=== PATIENT | male | born 1955 ===

== ENCOUNTER 2017-09-16 15:40 | Emergency (ER) | payer MEDICAID ==
--- NOTE | 2017-09-16 16:04 | ED PDOC ---
Arrival/HPI - General Time Seen by Provider: 09/16/17 16:00 Historian: Patient - History of Present Illness Narrative History of Present Illness (Text): 09/16/17 16:02 A 61 year old male, whose past medical history includes hypertension and hepatitis, presents to the emergency department complaining of left lower lung pain for 1 month. Patient reports also experiencing pain when taking deep breaths, more so when laying down, intermittent abdominal pain, and minimal cough. Denies of any fever, shortness of breath, or any other complaints at this time. No PMD Time/Duration: Other (1 month) Symptom Onset: Sudden Symptom Course: Unchanged Past Medical History - Provider Review Nursing Documentation Reviewed: Yes - Infectious Disease Hx of Infectious Diseases: None - Cardiac Hx Cardiac Disorders: Yes Hx Hypertension: Yes - Pulmonary Hx Respiratory Disorders: No - Neurological Hx Neurological Disorder: No - HEENT Hx HEENT Disorder: No - Renal Hx Renal Disorder: No - Endocrine/Metabolic Hx Endocrine Disorders: No - Hematological/Oncological Hx Blood Transfusions: No - Integumentary Hx Dermatological Disorder: No - Musculoskeletal/Rheumatological Hx Musculoskeletal Disorders: Yes Hx Gout: Yes - Gastrointestinal Hx Gastrointestinal Disorders: No - Genitourinary/Gynecological Hx Genitourinary Disorders: No - Psychiatric Hx Psychophysiologic Disorder: No Hx Substance Use: No - Anesthesia Hx Anesthesia Reactions: No Hx Malignant Hyperthermia: No Family/Social History - Physician Review Nursing Documentation Reviewed: Yes Family/Social History: No Known Family HX Smoking Status: Never Smoked Hx Alcohol Use: No Hx Substance Use: No Allergies/Home Meds Allergies/Adverse Reactions: Allergies No Known Allergies Allergy (Verified 11/24/16 21:19) Home Medications: Home Meds Medication Instructions Recorded Confirmed Allopurinol [Zyloprim] 100 mg PO DAILY 11/24/16 09/16/17 Propranolol HCl [Inderal LA] 60 mg PO DAILY 11/29/16 09/16/17 Review of Systems - Physician Review All systems were reviewed & negative as marked: Yes - Review of Systems Constitutional: absent: Fevers ENT: absent: Sore Throat Respiratory: Cough (minimal cough) Cardiovascular: Chest Pain (left lower lung pain) Gastrointestinal: Abdominal Pain (intermittent) Physical Exam Vital Signs Temp Pulse Resp BP Pulse Ox 09/16/17 16:30 97.7 F 88 16 141/96 H 98 - Systems Exam Head: Present: Atraumatic, Normocephalic Pupils: Present: PERRL Extroacular Muscles: Present: EOMI Conjunctiva: Present: Normal Mouth: Present: Moist Mucous Membranes Neck: Present: Normal Range of Motion Respiratory/Chest: Present: Clear to Auscultation, Good Air Exchange. No: Respiratory Distress, Accessory Muscle Use Cardiovascular: Present: Regular Rate and Rhythm, Normal S1, S2. No: Murmurs Abdomen: Present: Normal Bowel Sounds. No: Tenderness, Distention, Peritoneal Signs Back: Present: Normal Inspection Upper Extremity: Present: Normal Inspection. No: Cyanosis, Edema Lower Extremity: Present: Normal Inspection. No: Edema Neurological: Present: GCS=15, CN II-XII Intact, Speech Normal Skin: Present: Warm, Dry, Normal Color. No: Rashes Psychiatric: Present: Alert, Oriented x 3, Normal Insight, Normal Concentration Medical Decision Making ED Course and Treatment: 09/16/17 16:06 Impression: 61 year old male with left lower lung pain, minimal cough, and intermittent abdominal pain. No acute findings on physical exam. Plan: -- Reassess and disposition Prior Visits: Notes and results from previous visits were reviewed. Patient was last seen in the emergency department on 11/24/2016 for RUQ pain with associated nausea and vomiting. Patient was admitted. Progress Notes: - Lab Interpretations Lab Results: 09/16/17 17:00 09/16/17 17:00 Lab Results 09/16/17 17:00: D-Dimer, Quantitative < 200 09/16/17 17:00: Sodium 142, Potassium 4.4, Chloride 105, Carbon Dioxide 28, Anion Gap 14, BUN 12, Creatinine 1.0, Est GFR ( Amer) > 60, Est GFR (Non- Af Amer) > 60, Random Glucose 93, Calcium 9.7, Total Bilirubin 0.7, AST 40, ALT 44, Alkaline Phosphatase 103, Troponin I < 0.01, NT-Pro-B Natriuret Pep 24.0, Total Protein 7.6, Albumin 4.3, Globulin 3.3, Albumin/Globulin Ratio 1.3, Lipase 44 09/16/17 17:00: WBC 8.2 D, RBC 5.19, Hgb 16.0, Hct 46.8, MCV 90.2, MCH 30.8, MCHC 34.2, RDW 13.4, Plt Count 153, MPV 10.7, Gran % 62.3, Lymph % (Auto) 30.6, Cook % (Auto) 5.2, Eos % (Auto) 1.5, Baso % (Auto) 0.4, Gran # 5.13, Lymph # 2.5 , Cook # 0.4, Eos # 0.1, Baso # 0.03 - RAD Interpretation Radiology Orders: 09/16/17 16:40 ANGIO CHEST PE PROTOCOL [CT] Stat CHEST PORTABLE [RAD] Stat - Scribe Statement The provider has reviewed the documentation as recorded by the Alessio Quach Provider Scribe Attestation: All medical record entries made by the Luisibe were at my direction and personally dictated by me. I have reviewed the chart and agree that the record accurately reflects my personal performance of the history, physical exam, medical decision making, and the department course for this patient. I have also personally directed, reviewed, and agree with the discharge instructions and disposition. Disposition/Present on Arrival - Present on Arrival History of DVT/PE: No History of Uncontrolled Diabetes: No Urinary Catheter: No History Surgical Site Infection Following: None - Disposition Diagnosis: Diaphragmatic pleurisy Disposition: HOME/ ROUTINE Disposition Time: 18:30 Patient Plan: Discharge Patient Problems: Current Active Problems Problem Status Onset Diaphragmatic pleurisy Acute Condition: GOOD Discharge Instructions (ExitCare): Pleural Empyema (ED), Pleurisy (ED) Prescriptions: predniSONE [predniSONE Tab] 40 mg PO DAILY 5 Days #10 tab Referrals: [id number] [Other] - Follow up with primary Forms: [employer] (Pashto)
[2017-09-16 16:33] VITALS: BMI 38.9
[2017-09-16 16:41] VITALS: RESP 16; TEMP 97.7
[2017-09-16] MEDS ORDERED: Iohexol 350 MG/100 ML VIAL ONE (16:59)
[2017-09-16 17:19] LABS: BASO # 0.03 K/mm3 (0.0-2.0); BASO % 0.4 % (0.0-3.0); EOS # 0.1 (0.0-0.7); EOS % 1.5 % (1.5-5.0); GRAN # 5.13 (1.4-6.5); GRAN % 62.3 % (50.0-68.0); HEMATOCRIT 46.8 % (42.0-52.0); LYMPH # 2.5 (1.2-3.4); LYMPH % 30.6 % (22.0-35.0); MEAN CELL VOLUME 90.2 fl (80.0-105.0); MEAN CORPUSCULAR HEMOGLOBIN 30.8 pg (25.0-35.0); MEAN CORPUSCULAR HGB CONC 34.2 g/dl (31.0-37.0); MEAN PLATELET VOLUME 10.7 fl (7.0-11.0); MONO # 0.4 (0.1-0.6); MONO % 5.2 % (1.0-6.0); RED CELL DISTRIBUTION WIDTH 13.4 % (11.5-14.5); WHITE BLOOD COUNT 8.2 10^3/ul (4.5-11.0)
[2017-09-16 17:32] LABS: ALB/GLOB RATIO 1.3 (1.1-1.8); ALKALINE PHOSPHATASE 103 U/L (38-126); ALT/SGPT 44 U/L (7-56); AST/SGOT 40 U/L (17-59); BILIRUBIN,TOTAL 0.7 mg/dL (0.2-1.3); BLOOD UREA NITROGEN 12 mg/dL (7-21); CALCIUM 9.7 mg/dL (8.4-10.5); CARBON DIOXIDE 28 mmol/L (21-33); CHLORIDE 105 mmol/L (98-107); GFR AFRICAN-AMERICAN > 60; GLUCOSE,RANDOM 93 mg/dL (70-110); LIPASE 44 U/L (23-300); POTASSIUM 4.4 mmol/L (3.6-5.0); SODIUM 142 mmol/L (132-148); TOTAL PROTEIN 7.6 g/dL (5.8-8.3)
[2017-09-16 17:42] LABS: TROPONIN I < 0.01 ng/mL
--- NOTE | 2017-09-16 18:00 | CARD ---
APPROVED REPORT EKG Measurement Heart [id number] <Conclusion> Normal sinus rhythm Normal ECG
--- NOTE | 2017-09-16 18:18 | CT ---
CTA chest PE protocol Indication: Rule out PE Technique: Contiguous axial images were obtained through the chest with intravenous contrast enhancement. Sagittal and coronal reconstructions were generated and reviewed. This CT exam was performed using 1 or more of the falling dose reduction techniques: Automated exposure control, adjustment of the MAA and/or kV according to patient size, and/or use of iterative reconstruction technique. IV Contrast: 100 cc Omnipaque 350 Radiation dose (DLP): 788.18 MGy-cm. Comparison: Chest x-ray performed 11/24/16 Findings: Visualized portions of the inferior thyroid gland appear unremarkable. The mediastinal and hilar vascular structures appear within normal limits. The heart appears within normal limits of size. No large central or segmental pulmonary embolus evident. No focal consolidation. No pleural effusion. No pneumothorax. No suspicious pulmonary nodules measuring greater than 5 mm. Limited visualized portions of the upper abdomen demonstrates cholecystectomy clips. 19 mm hepatic hypodense lesion, 18 HU, indeterminate. Fatty atrophy of the pancreas. Punctate left renal calculi. Degenerative changes of the spine Impression: No large central or segmental pulmonary embolus evident. Cholecystectomy clips. 19 mm hepatic hypodense lesion, 18 HU, indeterminate. Suggest dedicated cross-sectional imaging for further evaluation if indicated. Fatty atrophy of the pancreas. Punctate left renal calculi. No hydronephrosis.
[2017-09-16 19:12] VITALS: BP 137/94; PULSE 84; O2SAT 97
--- NOTE | 2017-09-17 08:01 | RAD ---
HISTORY: cp COMPARISON: 11/24/2016 FINDINGS: LUNGS: No active pulmonary disease. PLEURA: No significant pleural effusion identified, no pneumothorax apparent. CARDIOVASCULAR: Normal. OSSEOUS STRUCTURES: No significant abnormalities. VISUALIZED UPPER ABDOMEN: Normal. OTHER FINDINGS: None. IMPRESSION: No active disease.
== END 2017-09-16 18:50 | disposition home or self-care (01) ==
LOC: ED 15:40
DX: R09.1 Pleurisy (principal); I10 Essential (primary) hypertension
CPT/HCPCS: 71010; 71275; 80053; 83690; 83880; 84484; 85025; 85378; 93005; 99283; Q9967

== ENCOUNTER 2018-09-30 02:05 | Observation (INO) | payer MEDICAID ==
[2018-09-30 02:33] VITALS: BMI 41.7
--- NOTE | 2018-09-30 03:05 | ED PDOC ---
Arrival/HPI - General Chief Complaint: High Blood Pressure Time Seen by Provider: 09/30/18 02:43 Historian: Patient - History of Present Illness Narrative History of Present Illness (Text): 09/30/18 03:01 62 year old male, whose past medical history includes hypertension and borderline diabetes, presents to the emergency department with generalized malaise for the past couple of days. Patient informs having associated dizzine ss. Patient states his blood pressure has been elevated. Patient informs taking lisinopril, and informs having to take an extra dose yesterday evening. Patient states he is concerned because he feels near syncopal every time he gets up and walks. Patient states he never experienced this before. Patient denies any chest pain, shortness of breath, neck pain, back pain, fever, chills, or any other complaint. Time/Duration: Prior to Arrival, < week Activities at Onset: Light Past Medical History - Provider Review Nursing Documentation Reviewed: Yes - Infectious Disease Hx of Infectious Diseases: None - Cardiac Hx Cardiac Disorders: Yes Hx Hypertension: Yes - Pulmonary Hx Respiratory Disorders: No - Neurological Hx Neurological Disorder: No - HEENT Hx HEENT Disorder: No - Renal Hx Renal Disorder: No - Endocrine/Metabolic Hx Endocrine Disorders: No - Hematological/Oncological Hx Blood Transfusions: No - Integumentary Hx Dermatological Disorder: No - Musculoskeletal/Rheumatological Hx Musculoskeletal Disorders: Yes Hx Gout: Yes - Gastrointestinal Hx Gastrointestinal Disorders: No - Genitourinary/Gynecological Hx Genitourinary Disorders: No - Psychiatric Hx Psychophysiologic Disorder: No Hx Substance Use: No - Surgical History Hx Cholecystectomy: Yes - Anesthesia Hx Anesthesia: Yes Hx Anesthesia Reactions: No Hx Malignant Hyperthermia: No Family/Social History - Physician Review Nursing Documentation Reviewed: Yes Family/Social History: No Known Family HX Smoking Status: Never Smoked Hx Alcohol Use: No Hx Substance Use: No Allergies/Home Meds Allergies/Adverse Reactions: Allergies No Known Allergies Allergy (Verified 09/30/18 02:37) Home Medications: Home Meds Medication Instructions Recorded Confirmed Allopurinol [Zyloprim] 100 mg PO DAILY 11/24/16 09/30/18 Lisinopril [Prinivil] 20 mg PO DAILY 09/30/18 09/30/18 Review of Systems - Physician Review All systems were reviewed & negative as marked: Yes - Review of Systems Constitutional: Fatigue (generalized malaise). absent: Fevers, Night Sweats Respiratory: absent: SOB Cardiovascular: Syncope (near syncope). absent: Chest Pain Musculoskeletal: absent: Back Pain, Neck Pain Neurological: Dizziness Physical Exam Vital Signs Reviewed: Yes Vital Signs Temp Pulse Resp BP Pulse Ox 09/30/18 02:33 98.8 F 91 H 18 146/100 H 97 Temperature: Afebrile Blood Pressure: Hypertensive Pulse: Regular Respiratory Rate: Normal Appearance: Positive for: Well-Appearing, Non-Toxic, Comfortable Pain Distress: None Mental Status: Positive for: Alert and Oriented X 3 - Systems Exam Head: Present: Atraumatic, Normocephalic Pupils: Present: PERRL Extroacular Muscles: Present: EOMI. No: Other (No nystagmus) Conjunctiva: Present: Normal Mouth: Present: Moist Mucous Membranes Neck: Present: Normal Range of Motion Respiratory/Chest: Present: Clear to Auscultation, Good Air Exchange. No: Respiratory Distress, Accessory Muscle Use Cardiovascular: Present: Regular Rate and Rhythm, Normal S1, S2. No: Murmurs Abdomen: No: Tenderness, Distention, Peritoneal Signs Back: Present: Normal Inspection Upper Extremity: Present: Normal Inspection. No: Cyanosis, Edema Lower Extremity: Present: Normal Inspection. No: Edema Neurological: Present: GCS=15, CN II-XII Intact, Speech Normal, Motor Func Grossly Intact, Normal Sensory Function, Normal Cerebellar Funct Skin: Present: Warm, Dry, Normal Color. No: Rashes Psychiatric: Present: Alert, Oriented x 3, Normal Insight, Normal Concentration Medical Decision Making ED Course and Treatment: 09/30/18 03:08 Impression: 62 year old male presents with dizziness and malaise Plan: -- CT Head -- EKG -- Cardiac Iso -- CMP -- CBC -- Chest X-ray -- Reassess and disposition Prior Visits: Notes and results from previous visits were reviewed. Progress Notes: 09/30/18 04:21 CT SCAN OF THE BRAIN WITHOUT IV CONTRAST CLINICAL INDICATION: Dizziness. Near syncope. TECHNIQUE: Axial and reformatted sagittal and coronal images of the brain obtained without IV contrast administration. Normal size of the ventricles and extra-axial spaces for the patient's age. Normal white matter tracts of the supratentorial brain. Normal basal ganglia and thalami. Normal brainstem. Normal cerebellum. There is no demonstrated extra-axial, intraparenchymal, or intraventricular hemorrhage. There are no findings of an acute ischemic infarction. Normal calvarium. There is no demonstrated fracture. Normal soft tissue structures. Normal visualized paranasal sinuses. IMPRESSION: Normal unenhanced CT scan of the brain. 09/30/18 05:05 Case discussed with medical coding technician and house MD Villafuerte who accepts to the hospitalist service. - RAD Interpretation Radiology Orders: 09/30/18 02:54 HEAD W/O CONTRAST [CT] Stat CHEST PORTABLE [RAD] Stat - Scribe Statement The provider has reviewed the documentation as recorded by the Scribe Aditya Torrez Provider Scribe Attestation: All medical record entries made by the Scribe were at my direction and personally dictated by me. I have reviewed the chart and agree that the record accurately reflects my personal performance of the history, physical exam, medical decision making, and the department course for this patient. I have also personally directed, reviewed, and agree with the discharge instructions and disposition. Disposition/Present on Arrival - Present on Arrival Any Indicators Present on Arrival: No History of DVT/PE: No History of Uncontrolled Diabetes: No Urinary Catheter: No History of Decub. Ulcer: No History Surgical Site Infection Following: None - Disposition Have Diagnosis and Disposition been Completed?: Yes Diagnosis: Near syncope, Labile hypertension Disposition: HOSPITALIZED Disposition Time: 05:16 Condition: STABLE Referrals: Genaro Chauhan MD [Primary Care Provider] - Follow up with primary Forms: [employer] (Chinese)
[2018-09-30 03:36] LABS: HEMOGLOBIN 15.5 g/dL (14.0-18.0); MEAN CELL VOLUME 89.9 fl (80.0-105.0); MEAN CORPUSCULAR HEMOGLOBIN 30.6 pg (25.0-35.0); MEAN CORPUSCULAR HGB CONC 34.1 g/dl (31.0-37.0); MEAN PLATELET VOLUME 10.8 fl (7.0-11.0); RBC 5.06 10^6/uL (3.5-6.1); RED CELL DISTRIBUTION WIDTH 13.2 % (11.5-14.5); WHITE BLOOD COUNT 8.8 10^3/uL (4.5-11.0)
[2018-09-30 03:46] LABS: INR 1.03; PARTIAL THROMBOPLASTIN TIME 29.6 Seconds (25.1-36.5); PROTHROMBIN TIME 11.8 SECONDS (9.4-12.5)
[2018-09-30 04:00] LABS: ALB/GLOB RATIO 1.2 (1.1-1.8); ALBUMIN 3.8 g/dL (3.0-4.8); ALT/SGPT 71 U/L (7-56); AST/SGOT 54 U/L (17-59); BLOOD UREA NITROGEN 13 mg/dL (7-21); CALCIUM 9.1 mg/dL (8.4-10.5); GFR NON-AFRICAN AMERICAN > 60
[2018-09-30 04:11] LABS: TROPONIN I < 0.01 ng/mL
--- NOTE | 2018-09-30 06:13 | CP.PCM.HP ---
<Seun Curran - Last Filed: 09/30/18 22:30> History of Present Illness - History of Present Illness History of Present Illness: Seun Curran DO PGY1. H&P for Hospitalist Service C.C: dizziness 62 y/o male with PMH of HTN, gout, HCV presents with one day h/o dizziness and near syncope after taking 40 mg of lisinopril instead of 20mg daily because of elevated BP in 190s/100. Patient admits to medication non compliance and he takes lisinopril only when his BP is highly increased. He also experienced near syncope but denied LOC or trauma. Patient reports to having chronic diarrhea s/p cholecystectomy that hasn't changed. He has gout and takes allopurinol daily and adds cholchicine to it when having joint pain. He also admits to having left renal stones with infrequent renal colics and occasional blood in urine but he denied dysurea, urgency, frequency. Patient denied chest pain, palpitations, LE edema, abdominal pain/distention, vomiting , headache, blurry vision. 12 points ROS reviewed with pertinent positives as above. PMH: kidney stone, HTN, gout, HCV PSH: cholecystectomy Meds: lisinopril 20mg qd, allopurinol ALL: NKDA Soc Hx: denies alcohol, drug use, smoking Fam Hx: no contributory Present on Admission - Present on Admission Any Indicators Present on Admission: No Past Patient History - Infectious Disease Hx of Infectious Diseases: None - Past Social History Smoking Status: Never Smoked - CARDIAC Hx Cardiac Disorders: Yes Hx Hypertension: Yes - PULMONARY Hx Respiratory Disorders: No - NEUROLOGICAL Hx Neurological Disorder: No - HEENT Hx HEENT Problems: No - RENAL Hx Chronic Kidney Disease: No - ENDOCRINE/METABOLIC Hx Endocrine Disorders: No - HEMATOLOGICAL/ONCOLOGICAL Hx Blood Transfusions: No - INTEGUMENTARY Hx Dermatological Problems: No - MUSCULOSKELETAL/RHEUMATOLOGICAL Hx Musculoskeletal Disorders: Yes Hx Gout: Yes - GASTROINTESTINAL Hx Gastrointestinal Disorders: No - GENITOURINARY/GYNECOLOGICAL Hx Genitourinary Disorders: No - PSYCHIATRIC Hx Psychophysiologic Disorder: No Hx Substance Use: No - SURGICAL HISTORY Hx Cholecystectomy: Yes - ANESTHESIA Hx Anesthesia: Yes Hx Anesthesia Reactions: No Hx Malignant Hyperthermia: No Meds Allergies/Adverse Reactions: Allergies Allergy/AdvReac Type Severity Reaction Status Date / Time No Known Allergies Allergy Verified 09/30/18 02:37 Physical Exam - Constitutional Appears: Well, No Acute Distress - Head Exam Head Exam: ATRAUMATIC, NORMAL INSPECTION, NORMOCEPHALIC - Eye Exam Eye Exam: EOMI, Normal appearance, PERRL Pupil Exam: NORMAL ACCOMODATION, PERRL - ENT Exam ENT Exam: Mucous Membranes Moist, Normal Exam - Neck Exam Neck exam: Positive for: Full Rom - Respiratory Exam Respiratory Exam: Clear to Auscultation Bilateral, NORMAL BREATHING PATTERN - Cardiovascular Exam Cardiovascular Exam: REGULAR RHYTHM, RRR, +S1, +S2. absent: Gallop, Rubs - GI/Abdominal Exam GI & Abdominal Exam: Normal Bowel Sounds, Soft. absent: Tenderness - Extremities Exam Extremities exam: Positive for: normal inspection - Back Exam Back exam: NORMAL INSPECTION - Neurological Exam Neurological exam: Alert, CN II-XII Intact, Oriented x3, Reflexes Normal - Psychiatric Exam Psychiatric exam: Normal Affect, Normal Mood - Skin Skin Exam: Dry, Intact, Normal Color, Warm Results - Vital Signs Recent Vital Signs: Last Vital Signs Temp 98.8 F 09/30/18 02:33 Pulse 80 09/30/18 04:51 Resp 18 09/30/18 04:51 BP 125/70 09/30/18 04:51 Pulse Ox 95 09/30/18 04:51 - Labs Result Diagrams: 09/30/18 03:22 09/30/18 03:22 Labs: Laboratory Results - last 24 hr 09/30/18 09/30/18 09/30/18 03:22 03:22 03:22 WBC 8.8 RBC 5.06 Hgb 15.5 Hct 45.5 MCV 89.9 MCH 30.6 MCHC 34.1 RDW 13.2 Plt Count 154 MPV 10.8 PT 11.8 INR 1.03 APTT 29.6 Sodium 137 Potassium 4.2 Chloride 105 Carbon Dioxide 26 Anion Gap 11 BUN 13 Creatinine 0.9 Est GFR ( Amer) > 60 Est GFR (Non-Af Amer) > 60 Random Glucose 148 H Calcium 9.1 Total Bilirubin 0.3 AST 54 ALT 71 H Alkaline Phosphatase 91 Lactate Dehydrogenase 469 Total Creatine Kinase 176 Troponin I < 0.01 Total Protein 7.1 Albumin 3.8 Globulin 3.3 Albumin/Globulin Ratio 1.2 Assessment & Plan - Assessment and Plan (Free Text) Assessment: 62 y/o male with PMH of HTN, gout, HCV presents with one day h/o dizziness and near syncope after taking double dose of lisinopril. Plan: Dizziness/near syncope: -likely due to change in lisinopril dose -CT head: no ICH -orthostatics -admit to tele -cardiac monitoring -EKG: NSR. no ST/T wave changes -CXR: no active disease -neuro ckeck, accuheck -fall precautions -cardiology consult -neuro consult HTN: -medication non compliance -continue home med lisinopril Gout: -no active joint pain -continue ehome med allopurinol Borderline DM: -accuheck -ISS-low -HgbA1C, lipid panel Case reviewed and plan discussed with Dr Naida Curran, DO PGY1 <Krissy Pascal - Last Filed: 10/03/18 01:57> Results - Vital Signs Recent Vital Signs: Last Vital Signs Temp 98.3 F 10/02/18 07:55 Pulse 91 H 10/02/18 07:55 Resp 18 10/02/18 07:55 BP 134/80 10/02/18 10:23 Pulse Ox 96 10/02/18 07:55 - Labs Result Diagrams: 10/02/18 06:00 10/02/18 06:00 Labs: Laboratory Results - last 24 hr 10/02/18 10/02/18 06:00 06:00 WBC 10.5 D RBC 5.14 Hgb 15.4 Hct 46.5 MCV 90.5 MCH 30.0 MCHC 33.1 RDW 13.4 Plt Count 166 MPV 11.2 H Sodium 139 Potassium 4.0 Chloride 105 Carbon Dioxide 27 Anion Gap 11 BUN 15 Creatinine 1.0 Est GFR ( Amer) > 60 Est GFR (Non-Af Amer) > 60 Random Glucose 116 H Calcium 8.9 Total Bilirubin 0.6 AST 51 ALT 61 H Alkaline Phosphatase 97 Total Protein 7.0 Albumin 3.9 Globulin 3.1 Albumin/Globulin Ratio 1.2 Attending/Attestation - Attestation I have personally seen and examined this patient.: Yes I have fully participated in the care of the patient.: Yes I have reviewed all pertinent clinical information: Yes
[2018-09-30] MEDS: Insulin Lispro (humaLOG) LOW Coverage SC SCH ×4 (07:43→21:24)
--- NOTE | 2018-09-30 08:23 | RAD ---
Date of service: 09/30/2018 HISTORY: dizzy COMPARISON: Portable chest 09/16/2017. FINDINGS: LUNGS: No active pulmonary disease. PLEURA: No significant pleural effusion identified, no pneumothorax apparent. CARDIOVASCULAR: No aortic atherosclerotic calcification present. Normal cardiac size. No pulmonary vascular congestion. OSSEOUS STRUCTURES: No significant abnormalities. VISUALIZED UPPER ABDOMEN: Normal. OTHER FINDINGS: None. IMPRESSION: No interval acute cardiopulmonary disease appreciated.
--- NOTE | 2018-09-30 09:02 | CT ---
Date of service: 09/30/2018 PROCEDURE: CT HEAD WITHOUT CONTRAST. HISTORY: dizzy/near syncope COMPARISON: None available. TECHNIQUE: Axial computed tomography images were obtained through the head/brain without intravenous contrast. Radiation dose: Total exam DLP = 834.22 mGy-cm. This CT exam was performed using one or more of the following dose reduction techniques: Automated exposure control, adjustment of the mA and/or kV according to patient size, and/or use of iterative reconstruction technique. FINDINGS: HEMORRHAGE: No intracranial hemorrhage. BRAIN: Normal cruz-white matter differentiation and density are appreciated throughout the cerebrum and cerebellum with the brainstem appearing unremarkable as well. There is no mass effect. There is no suspicious extra-axial fluid collection and the midline brain anatomy appears diffusely unremarkable. VENTRICLES: Unremarkable. No hydrocephalus. CALVARIUM: Unremarkable. PARANASAL SINUSES: Unremarkable as visualized. No significant inflammatory changes. MASTOID AIR CELLS: Unremarkable as visualized. No inflammatory changes. OTHER FINDINGS: None. IMPRESSION: Unremarkable unenhanced head CT. Concordant preliminary report from [place], 09/30/2018 4:09 a.m..
--- NOTE | 2018-09-30 16:20 | CP.PCM.CON ---
History of Present Illness - History of Present Illness History of Present Illness: Neurology Consultation Note: Mr. Boyle is a 62-year-old man with a past medical history of HTN, gout, HCV presents with one day h/o dizziness and near syncope after taking 40 mg of lisinopril instead of 20 mg daily because of elevated BP in 190s/100. Patient admits to medication non compliance and he takes lisinopril only when his BP is highly increased. According to the patient, he took extra anti-hypertensive meds because his BP was in the 170's range and he was feeling dizzy at that time. After taking the medication, he continued to feel dizzy and it did not help his blood pressure much. Today, he feels normal and he has not been symptomatic since. Review of Systems - Constitutional Constitutional: As Per HPI - EENT Eyes: Other Visual Disturbances Ears: absent: As Per HPI, Decreased Hearing, Ear Discharge, Ear Pain, Tinnitus, Abnormal Hearing, Disequilibrium, Dizziness, Other Nose/Mouth/Throat: absent: As Per HPI, Epistaxis, Nasal Congestion, Nasal Discharge, Nasal Obstruction, Nasal Trauma, Nose Pain, Post Nasal Drip, Sinus Pain, Sinus Pressure, Bleeding Gums, Change in Voice, Dental Pain, Dry Mouth, Dysphagia, Halitosis, Hoarsness, Lip Swelling, Mouth Lesions, Mouth Pain, Odynophagia, Sore Throat, Throat Swelling, Tongue Swelling, Facial Pain, Neck P ain, Neck Mass, Other - Cardiovascular Cardiovascular: absent: As Per HPI, Acrocyanosis, Chest Pain, Chest Pain at Rest, Chest Pain with Activity, Claudication, Diaphoresis, Dyspnea, Dyspnea on Exertion, Edema, Irregular Heart Rhythm, Pain Radiating to Arm/Neck/Jaw, Leg Edema, Leg Ulcers, Lightheadedness, Orthopnea, Palpitations, Paroxysmal Nocturnal Dyspnea, Pedal Edema, Radiating Pain, Rapid Heart Rate, Slow Heart Rate, Syncope, Other - Respiratory Respiratory: absent: As Per HPI, Cough, Dyspnea, Hemoptysis, Dyspnea on Exertion, Wheezing, Snoring, Stridor, Pain on Inspiration, Chest Congestion, Excessive Mucous Production, Change in Mucous Color, Pain with Coughing, Other - Gastrointestinal Gastrointestinal: absent: As Per HPI, Abdominal Pain, Belching, Bloating, Change in Bowel Habits, Change in Stool Character, Coffee Ground Emesis, Constipation, Cramping, Diarrhea, Dyspepsia, Dysphagia, Early Satiety, Excessive Flatus, Fecal Incontinence, Heartburn, Hematemesis, Hematochezia, Loose Stools, Melena, Nausea, Odynophagia, Temesmus, Vomiting, Other - Musculoskeletal Musculoskeletal: absent: As Per HPI, Abnormal Gait, Arthralgias, Atrophy, Back Pain, Deformity, Joint Swelling, Limited Range of Motion, Loss of Height, Muscle Cramps, Muscle Weakness, Myalgias, Neck Pain, Numbness, Radiating Pain into Limb, Stiffness, Tingling, Other - Integumentary Integumentary: absent: As Per HPI, Acne, Alopecia, Bleeding Lesions, Change in Hair, Change in Nails, Change in Pigmentation, Changing Lesions, Dry Skin, Erythema, Furuncle, Hirsutism, Lesions, New Lesions, Non-Healing Lesions, Photosensitivity, Pruritus, Rash, Skin Pain, Skin Ulcer, Sores, Striae, Swelling, Unusual Bruising, Wounds, Jaundice, Other - Neurological Neurological: As Per HPI - Psychiatric Psychiatric: absent: As Per HPI, Abnormal Sleep Pattern, Anhedonia, Anxiety, Auditory Hallucinations, Behavioral Changes, Change in Appetite, Change in L ibido, Confusion, Depression, Difficulty Concentrating, Hallucinations, Homicidal Ideation, Hopelessness, Irritability, Memory Loss, Mood Swings, Panic Attacks, Paranoia, Suicidal Ideation, Visual Hallucinations, Tactile Hallucinations, Other - Endocrine Endocrine: absent: As Per HPI, Change in Body Appearance, Change in Libido, Cold Intolorance, Deepening of Voice, Excessive Sweating, Fatigue, Flushing, Heat Intolorance, Increase in Ring/Shoe/Hat Size, Palpitations, Polydipsia, Polyphagia, Polyuria, Other - Hematologic/Lymphatic Hematologic: absent: As Per HPI, Easy Bleeding, Easy Bruising, Lymphadenopathy, Other Past Patient History - Infectious Disease Hx of Infectious Diseases: None - Past Social History Smoking Status: Former Smoker - CARDIAC Hx Cardiac Disorders: Yes Hx Hypertension: Yes - PULMONARY Hx Respiratory Disorders: No Hx Sleep Apnea: Yes - NEUROLOGICAL Hx Neurological Disorder: No Hx Dizziness: No Hx Meningitis: No Hx Migraine: No Hx Seizures: No - HEENT Hx HEENT Problems: No - RENAL Hx Chronic Kidney Disease: No - ENDOCRINE/METABOLIC Hx Endocrine Disorders: No - HEMATOLOGICAL/ONCOLOGICAL Hx Blood Disorders: No - INTEGUMENTARY Hx Dermatological Problems: No - MUSCULOSKELETAL/RHEUMATOLOGICAL Hx Musculoskeletal Disorders: Yes Hx Falls: No Other/Comment: Gout - GASTROINTESTINAL Hx Gastrointestinal Disorders: No Hx Gall Bladder Disease: Yes - GENITOURINARY/GYNECOLOGICAL Hx Genitourinary Disorders: No - PSYCHIATRIC Hx Psychophysiologic Disorder: No - SURGICAL HISTORY Hx Surgeries: Yes Hx Cholecystectomy: Yes - ANESTHESIA Hx Anesthesia: Yes Hx Anesthesia Reactions: No Hx Malignant Hyperthermia: No Meds Allergies/Adverse Reactions: Allergies Allergy/AdvReac Type Severity Reaction Status Date / Time No Known Allergies Allergy Verified 09/30/18 02:37 - Medications Medications: Current Medications Allopurinol (Zyloprim) 100 mg PO DAILY [facility] Last Admin: 09/30/18 09:20 Dose: 100 mg Aspirin (Aspirin Chewable) 81 mg PO DAILY [facility] Atorvastatin Calcium (Lipitor) 10 mg PO DIN [facility] Insulin Human Lispro (Humalog Low) 0 units SC [facility]; Protocol Last Admin: 09/30/18 12:49 Dose: Not Given Lisinopril (Zestril) 20 mg PO DAILY [facility] Last Admin: 09/30/18 09:20 Dose: 20 mg Metformin HCl (Glucophage) 500 mg PO DAILY [facility] Physical Exam - Constitutional Appears: Well - Head Exam Head Exam: ATRAUMATIC, NORMAL INSPECTION, NORMOCEPHALIC - Eye Exam Eye Exam: EOMI, Normal appearance, PERRL Pupil Exam: NORMAL ACCOMODATION, PERRL - ENT Exam ENT Exam: Mucous Membranes Moist, Normal Exam - Neck Exam Neck exam: Positive for: Normal Inspection - Respiratory Exam Respiratory Exam: Clear to Auscultation Bilateral, NORMAL BREATHING PATTERN - Cardiovascular Exam Cardiovascular Exam: REGULAR RHYTHM, +S1, +S2 - GI/Abdominal Exam GI & Abdominal Exam: Normal Bowel Sounds, Soft. absent: Tenderness - Rectal Exam Rectal Exam: Deferred - Extremities Exam Extremities exam: Positive for: normal inspection - Back Exam Back exam: NORMAL INSPECTION - Neurological Exam Neurological exam: Alert, CN II-XII Intact, Normal Gait, Oriented x3, Reflexes Normal - Psychiatric Exam Psychiatric exam: Normal Affect, Normal Mood - Skin Skin Exam: Dry, Intact, Normal Color, Warm Results - Vital Signs Recent Vital Signs: Last Vital Signs Temp 98.6 F 09/30/18 11:30 Pulse 84 09/30/18 14:00 Resp 18 09/30/18 12:50 BP 140/92 H 09/30/18 11:30 Pulse Ox 95 12/18/18 11:30 - Labs Result Diagrams: 09/30/18 03:22 09/30/18 03:22 Labs: Laboratory Results - last 24 hr 09/30/18 09/30/18 09/30/18 03:22 03:22 03:22 WBC 8.8 RBC 5.06 Hgb 15.5 Hct 45.5 MCV 89.9 MCH 30.6 MCHC 34.1 RDW 13.2 Plt Count 154 MPV 10.8 PT 11.8 INR 1.03 APTT 29.6 Sodium 137 Potassium 4.2 Chloride 105 Carbon Dioxide 26 Anion Gap 11 BUN 13 Creatinine 0.9 Est GFR ( Amer) > 60 Est GFR (Non-Af Amer) > 60 POC Glucose (mg/dL) Random Glucose 148 H Hemoglobin A1c Calcium 9.1 Phosphorus Magnesium Total Bilirubin 0.3 AST 54 ALT 71 H Alkaline Phosphatase 91 Lactate Dehydrogenase 469 Total Creatine Kinase 176 Troponin I < 0.01 Total Protein 7.1 Albumin 3.8 Globulin 3.3 Albumin/Globulin Ratio 1.2 Triglycerides Cholesterol LDL Cholesterol Direct HDL Cholesterol Influenza Typ A,B (EIA) 09/30/18 09/30/18 09/30/18 03:22 03:22 05:35 WBC RBC Hgb Hct MCV MCH MCHC RDW Plt Count MPV PT INR APTT Sodium Potassium Chloride Carbon Dioxide Anion Gap BUN Creatinine Est GFR ( Amer) Est GFR (Non-Af Amer) POC Glucose (mg/dL) Random Glucose Hemoglobin A1c 6.9 H Calcium Phosphorus 3.4 Magnesium 2.1 Total Bilirubin AST ALT Alkaline Phosphatase Lactate Dehydrogenase Total Creatine Kinase Troponin I Total Protein Albumin Globulin Albumin/Globulin Ratio Triglycerides 129 Cholesterol 142 LDL Cholesterol Direct 106 HDL Cholesterol 27 L Influenza Typ A,B (EIA) Negative for flu a/b 09/30/18 09/30/18 09/30/18 07:35 07:39 12:50 WBC RBC Hgb Hct MCV MCH MCHC RDW Plt Count MPV PT INR APTT Sodium Potassium Chloride Carbon Dioxide Anion Gap BUN Creatinine Est GFR ( Amer) Est GFR (Non-Af Amer) POC Glucose (mg/dL) 107 Random Glucose Hemoglobin A1c Calcium Phosphorus Magnesium Total Bilirubin AST ALT Alkaline Phosphatase Lactate Dehydrogenase Total Creatine Kinase Troponin I < 0.01 < 0.01 Total Protein Albumin Globulin Albumin/Globulin Ratio Triglycerides Cholesterol LDL Cholesterol Direct HDL Cholesterol Influenza Typ A,B (EIA) Assessment & Plan (1) Near syncope Assessment and Plan: This may be due to elevated or decreased BP. IF it occurred during an episode of elevated BP, it could be hypertensive emergency. However, it may also be due to stenosis of his carotid or vertebral system. A CTA of the head/neck is recommended prior to discharge for further evaluation. Thank you for this consultation. Status: Acute
--- NOTE | 2018-09-30 16:22 | CT ---
Date of service: 09/30/2018 PROCEDURE: CT ANGIOGRAM CHEST AND ABDOMEN WITHOUT AND WITH CONTRAST HISTORY: aneurysm COMPARISON: CT ANGIO OF THE CHEST 09/16/2017 AND ABDOMEN ULTRASOUND 11/24/2016. TECHNIQUE: Helical CT of the chest abdomen and pelvis was performed following dynamic images contrast administration. Preliminary CT was performed through the chest, abdomen pelvis prior to intravenous contrast delivery. Oral contrast not administered to this patient. Multifocal reformatted dataset provided for added characterization. FINDINGS: The thoracic and abdominal aorta normal in caliber throughout with no aneurysm or dissection appreciated. Trace thoracic calcified plaques identified with the thoracic aorta ectatic. Normal caliber seen throughout the thoracic and abdominal aorta. No suspicious filling defects throughout the same distribution. No occlusion or significant stenosis. The abdominal aorta is widely patent from its origin to bifurcation. The aortic root is normal in caliber. No aneurysmal dilatation. The main pulmonary artery segment appears normal in caliber and left ventricular volume appears greater than the right. Trace bilateral basilar dependent atelectasis reiterated. No acute cardiopulmonary findings grossly evident. There is no definite pulmonary mass with trace bilateral basilar atelectasis identified. The thoracic inlet appears unremarkable. Significant lymphadenopathy in the chest. Mild cardiomegaly. No pulmonary vascular congestion. Stable lucency in the dome of the liver 2.2 x 1.6 cm. No splenic lesion appreciable. Prior cholecystectomy noted. Bilateral adrenal glands appear unremarkable with an atrophic pancreas noted. No acute renal findings bilaterally. Punctate intrarenal calculus lower pole bilateral kidneys with a 4 mm intrarenal calculus midpole left kidney. No obstructive uropathy bilaterally. Trace abdominal aortic atherosclerosis partially calcified with patent appearing celiac and superior mesenteric arteries as well as bilateral renal arteries. For mesenteric artery is also patent with robust appearing iliac arterial system identified. Bowel is not appear obstructed with mild retained fecal material identified at the right hemicolon. The stomach is mildly distend with retained food and fluid. Shotty central mesenteric lymph nodes identified and are minimal at the medial cysts pericecal space possibly reflecting mesenteric adenitis. No appendicitis appreciated. Unremarkable urinary bladder with mildly enlarged prostate gland evident. Tiny umbilical hernia is noted containing only minimal fat. No ascites or free intra peritoneal gas collection identified. No suspicious bony findings including fracture. Advanced multilevel thoracolumbar spondylosis identified diffusely. IMPRESSION: No thoracic or abdominal aortic aneurysm or dissection appreciable though limited calcific aortic atherosclerosis identified both in chest and abdomen. Lesser additional details as discussed above including stable lucency near the dome of the liver. See lesser findings as discussed above.
--- NOTE | 2018-09-30 21:30 | CON ---
DATE: 09/30/2018 CARDIOLOGY CONSULTATION REASON FOR CONSULTATION: Postural dizziness. HISTORY OF PRESENT ILLNESS: The patient is a 62-year-old male, who has no known prior cardiac history, except for history of hypertension and borderline diabetes mellitus. The patient presented because of dizziness usually when he stands up from the bed, which started yesterday morning; however, continued to occur until today when he came to the emergency room. The patient denies any fainting and does not palpitation. The patient stated that he took an extra dose of his lisinopril pill last evening. The patient denies any vomiting; however, he reports diarrhea when he eats fatty meals, which he attributes to his previous cholecystectomy. SOCIAL HISTORY: Nonsmoker and nondrinker. , lives with his . MEDICATIONS: Zestril 20 mg once a day and Zyloprim 100 mg once a day. PHYSICAL EXAMINATION: GENERAL: The patient is a middle-aged male, who does not appear to be in any distress. VITAL SIGNS: Blood pressure 115/87, heart rate 87, temperature 97.1, respirations 18. HEENT: Normocephalic. CHEST: Clear. HEART: S1, S2 regular. ABDOMEN: Soft. EXTREMITIES: No edema. LABORATORY DATA: CBC is entirely within normal limits. SMA-7 is within normal limits, except for glucose of 148. Lipid profile is within normal limits, except for HDL of 27. Two sets of troponins are negative. PT, PTT, and INR are within normal limits. EKG revealed normal sinus rhythm. Head CT scan without contrast, unremarkable study. Chest x-ray is unremarkable, except for slightly widened mediastinum, maybe related to unfolding of the aorta. ASSESSMENT: 1. Postural dizziness. 2. Hypertension. 3. Diabetes mellitus. RECOMMENDATIONS: Continue current Zestril 20 mg once a day. Start the aspirin at 81 mg once a day. Obtain an echocardiogram and carotid Doppler. Obtain chest CT scan without contrast. Simba Justice MD
[2018-10-01 06:50] VITALS: O2SAT 96
[2018-10-01 07:05] LABS: ALB/GLOB RATIO 1.2 (1.1-1.8); ALBUMIN 3.7 g/dL (3.0-4.8); ALT/SGPT 67 U/L (7-56); AST/SGOT 45 U/L (17-59); BLOOD UREA NITROGEN 13 mg/dL (7-21); CALCIUM 9.1 mg/dL (8.4-10.5); GFR NON-AFRICAN AMERICAN > 60
[2018-10-01 07:11] LABS: HEMOGLOBIN 15.5 g/dL (14.0-18.0); MEAN CELL VOLUME 90.6 fl (80.0-105.0); MEAN CORPUSCULAR HEMOGLOBIN 29.8 pg (25.0-35.0); MEAN CORPUSCULAR HGB CONC 32.8 g/dl (31.0-37.0); MEAN PLATELET VOLUME 11.4 fl (7.0-11.0); RBC 5.21 10^6/uL (3.5-6.1); RED CELL DISTRIBUTION WIDTH 13.5 % (11.5-14.5); WHITE BLOOD COUNT 8.7 10^3/uL (4.5-11.0)
--- NOTE | 2018-10-01 07:48 | CARD ---
APPROVED REPORT Date of service: 09/30/2018 EKG Measurement Heart [id number] <Conclusion> Normal sinus rhythm Normal ECG
[2018-10-01] MEDS: Insulin Lispro (humaLOG) LOW Coverage SC SCH ×4 (09:29→23:14)
--- NOTE | 2018-10-01 13:27 | CARD ---
APPROVED REPORT Date of service: 10/01/2018 EXAM: Two-dimensional and M-mode echocardiogram with Doppler and color Doppler. INDICATION Syncope 2D DIMENSIONS IVSd1.7 (0.7-1.1cm)LVDd4.4 (3.9-5.9cm) PWd1.4 (0.7-1.1cm)LVDs2.6 (2.5-4.0cm) FS (%) 39.4 %LVEF (%)70.2 (>50%) M-Mode DIMENSIONS Aortic Root3.00 (2.2-3.7cm)Aortic Cusp Exc.2.00 (1.5-2.0cm) Aortic Valve AoV Peak Fieiisfn050.0cm/Val Peak GR.7mmHg Mitral Valve MV E Ekcledci71.4cm/sMV A Inqxkvsp694.0cm/sE/A ratio0.7 TDI E/Lateral E'0.0E/Medial E'0.0 Tricuspid Valve TR Peak Ipflyyvv691al/sRAP [id number] Peak Gr.9mmHg [id number] LEFT VENTRICLE The left ventricle is normal size. There is mild concentric left ventricular hypertrophy. The left ventricular function is normal. The left ventricular ejection fraction is within the normal range. There is normal LV segmental wall motion. Transmitral Doppler flow pattern is Grade I-abnormal relaxation pattern. RIGHT VENTRICLE The right ventricle is normal size. There is normal right ventricular wall thickness. The right ventricular systolic function is normal. ATRIA The left atrium size is normal. The right atrium size is normal. AORTIC VALVE The aortic valve is not well visualized. There is trace aortic regurgitation. There is no aortic valvular stenosis. MITRAL VALVE The mitral valve is normal in structure. There is no mitral valve regurgitation noted. There is no mitral valve stenosis. TRICUSPID VALVE The tricuspid valve is normal in structure. There is no tricuspid valve regurgitation noted. PULMONIC VALVE The pulmonary valve is normal in structure. There is no pulmonic valvular regurgitation. GREAT VESSELS The aortic root is normal in size. PERICARDIAL EFFUSION There is no pericardial effusion. <Conclusion> There is mild concentric left ventricular hypertrophy. The left ventricular function is normal. The left ventricular ejection fraction is within the normal range. There is normal LV segmental wall motion. Transmitral Doppler flow pattern is Grade I-abnormal relaxation pattern.
[2018-10-01] MEDS ORDERED: Iohexol 350 MG/100 ML VIAL ONE (15:41)
--- NOTE | 2018-10-01 15:51 | CP.PCM.PN ---
<Lul Pa - Last Filed: 10/01/18 15:53> Subjective - Date & Time of Evaluation Date of Evaluation: 10/01/18 Time of Evaluation: 11:00 - Subjective Subjective: Patient seen and examined at bedside in no acute distress. Patient states he is feeling fine. Denies blurry vision, double vision, dizziness, headache, shortness of breath. Objective - Vital Signs/Intake and Output Vital Signs (last 24 hours): Temp Pulse Resp BP Pulse Ox 97.7 F 89 19 128/90 96 10/01/18 06:00 10/01/18 10:00 10/01/18 06:00 10/01/18 09:28 10/01/18 06:00 - Medications Medications: Current Medications Allopurinol (Zyloprim) 100 mg PO DAILY [facility] Last Admin: 10/01/18 09:28 Dose: 100 mg Aspirin (Aspirin Chewable) 81 mg PO DAILY [facility] Last Admin: 10/01/18 09:28 Dose: 81 mg Atorvastatin Calcium (Lipitor) 10 mg PO DIN [facility] Last Admin: 09/30/18 16:41 Dose: 10 mg Insulin Human Lispro (Humalog Low) 0 units SC [facility]; Protocol Last Admin: 10/01/18 09:29 Dose: Not Given Lisinopril (Zestril) 20 mg PO DAILY [facility] Last Admin: 10/01/18 09:28 Dose: 20 mg Metformin HCl (Glucophage) 500 mg PO DAILY [facility] Last Admin: 10/01/18 09:28 Dose: 500 mg - Labs Labs: 10/01/18 06:00 10/01/18 06:00 PT 11.8 SECONDS (9.4-12.5) 09/30/18 03:22 INR 1.03 09/30/18 03:22 APTT 29.6 Seconds (25.1-36.5) 09/30/18 03:22 - Constitutional Appears: Non-toxic, No Acute Distress - Head Exam Head Exam: ATRAUMATIC, NORMAL INSPECTION, NORMOCEPHALIC - Eye Exam Eye Exam: EOMI, Normal appearance - ENT Exam ENT Exam: Mucous Membranes Moist - Neck Exam Neck Exam: Normal Inspection - Respiratory Exam Respiratory Exam: Clear to Ausculation Bilateral, NORMAL BREATHING PATTERN - Cardiovascular Exam Cardiovascular Exam: REGULAR RHYTHM - GI/Abdominal Exam GI & Abdominal Exam: Soft, Normal Bowel Sounds - Extremities Exam Extremities Exam: Normal Inspection - Back Exam Back Exam: NORMAL INSPECTION - Neurological Exam Neurological Exam: Alert, Awake, Oriented x3 - Psychiatric Exam Psychiatric exam: Normal Affect, Normal Mood - Skin Skin Exam: Normal Color, Warm Assessment and Plan - Assessment and Plan (Free Text) Assessment: Near syncope -Resolved -Possibly blood pressure related -Echo- reveals mild concentric LVH, EF 70% -CTA head/neck ordered <Igor Zamorano - Last Filed: 10/03/18 15:58> Objective - Vital Signs/Intake and Output Vital Signs (last 24 hours): Temp Pulse Resp BP Pulse Ox 98.3 F 91 H 18 134/80 96 10/02/18 07:55 10/02/18 07:55 10/02/18 07:55 10/02/18 10:23 10/02/18 07:55 - Labs Labs: 10/02/18 06:00 10/02/18 06:00 PT 11.8 SECONDS (9.4-12.5) 09/30/18 03:22 INR 1.03 09/30/18 03:22 APTT 29.6 Seconds (25.1-36.5) 09/30/18 03:22 Assessment and Plan (1) Near syncope Status: Acute Attending/Attestation - Attestation I have personally seen and examined this patient.: Yes I have fully participated in the care of the patient.: Yes I have reviewed all pertinent clinical information, including history, physical exam and plan: Yes Notes (Text): 10/03/18 15:57 I agree with the assessment and plan. Symptoms resolved. No further recommendations.
--- NOTE | 2018-10-01 18:49 | CP.PCM.PN ---
<Joshua Blanco - Last Filed: 10/01/18 20:25> Subjective - Date & Time of Evaluation Date of Evaluation: 10/01/18 Time of Evaluation: 07:30 - Subjective Subjective: Medicine Progress Note for Hospitalist Service, Dr. Shagufta Blanco DO PGY-1 Pt seen and examined at bedside. Denies any acute complaints, states his dizziness and diarrhea have resolved. States he feels well today. Denies chest pain, palpitations, sob, n/v/d/c, abd pain, urinary complaints, or other symptoms. No acute events reported overnight. Objective - Vital Signs/Intake and Output Vital Signs (last 24 hours): Temp Pulse Resp BP Pulse Ox 97.7 F 89 19 128/90 96 10/01/18 06:00 10/01/18 10:00 10/01/18 06:00 10/01/18 09:28 10/01/18 06:00 - Medications Medications: Current Medications Allopurinol (Zyloprim) 100 mg PO DAILY [facility] Last Admin: 10/01/18 09:28 Dose: 100 mg Aspirin (Aspirin Chewable) 81 mg PO DAILY [facility] Last Admin: 10/01/18 09:28 Dose: 81 mg Atorvastatin Calcium (Lipitor) 10 mg PO DIN [facility] Last Admin: 10/01/18 18:38 Dose: 10 mg Insulin Human Lispro (Humalog Low) 0 units SC [facility]; Protocol Last Admin: 10/01/18 17:28 Dose: Not Given Lisinopril (Zestril) 20 mg PO DAILY [facility] Last Admin: 10/01/18 09:28 Dose: 20 mg Metformin HCl (Glucophage) 500 mg PO DAILY [facility] Last Admin: 10/01/18 09:28 Dose: 500 mg - Labs Labs: 10/01/18 06:00 10/01/18 06:00 PT 11.8 SECONDS (9.4-12.5) 09/30/18 03:22 INR 1.03 09/30/18 03:22 APTT 29.6 Seconds (25.1-36.5) 09/30/18 03:22 - Constitutional Appears: Well, Non-toxic, No Acute Distress - Head Exam Head Exam: ATRAUMATIC, NORMOCEPHALIC - Eye Exam Eye Exam: EOMI, Normal appearance, PERRL - ENT Exam ENT Exam: Mucous Membranes Moist - Neck Exam Neck Exam: Full ROM, Normal Inspection. absent: Tenderness - Respiratory Exam Respiratory Exam: Clear to Ausculation Bilateral, NORMAL BREATHING PATTERN. absent: Rales, Rhonchi, Wheezes - Cardiovascular Exam Cardiovascular Exam: REGULAR RHYTHM, +S1, +S2. absent: Gallop, Rubs, Murmur - GI/Abdominal Exam GI & Abdominal Exam: Soft, Normal Bowel Sounds. absent: Distended, Guarding, Tenderness, Organomegaly - Extremities Exam Extremities Exam: Full ROM, Normal Capillary Refill, Normal Inspection. absent: Calf Tenderness, Pedal Edema - Back Exam Back Exam: NORMAL INSPECTION. absent: paraspinal tenderness - Neurological Exam Neurological Exam: Alert, Awake, CN II-XII Intact, Normal Gait, Oriented x3, Reflexes Normal. absent: Motor Sensory Deficit - Skin Skin Exam: Dry, Intact, Normal Color, Warm Assessment and Plan - Assessment and Plan (Free Text) Assessment: 62 y/o male with PMH of HTN, gout, HCV presented with one day h/o dizziness and near syncope after taking double dose of lisinopril. Plan: Dizziness/near-syncope Likely 2/2 to change in lisinopril dose EKG in ED NSR, no St/T wave changes CT head neg CXR neg CT dissection study neg for aneurysm Echo demonstrates normal EF CTA head/neck done, read pending Cardio consulted (Dr. Justice), recs appreciated Neuro consulted (Dr. Zamorano), recs appreciated Hx HTN Medication non-compliance; pt states he only takes BP med when his pressure is elevated at home, not every day as instructed C/w home med Lisinopril Hx Gout No active joint pain C/w home med allopurinol DM2 A1c 6.9 Started Metformin 500 mg daily Started Statin therapy for low HDL in lipid panel Started on ASA therapy daily Pt seen, examined with, and plan discussed with Dr. Shagufta Glez, attending physician. Joshua Blanco DO PGY-1, Publicity Writer Pager #[phone] <Shagufta Glez R - Last Filed: 10/02/18 17:55> Objective - Vital Signs/Intake and Output Vital Signs (last 24 hours): Temp Pulse Resp BP Pulse Ox 98.3 F 91 H 18 134/80 96 10/02/18 07:55 10/02/18 07:55 10/02/18 07:55 10/02/18 10:23 10/02/18 07:55 Intake and Output: 10/02/18 10/02/18 06:59 18:59 Intake Total 200 Balance 200 - Labs Labs: 10/02/18 06:00 10/02/18 06:00 PT 11.8 SECONDS (9.4-12.5) 09/30/18 03:22 INR 1.03 09/30/18 03:22 APTT 29.6 Seconds (25.1-36.5) 09/30/18 03:22 Attending/Attestation - Attestation I have personally seen and examined this patient.: Yes I have fully participated in the care of the patient.: Yes I have reviewed all pertinent clinical information, including history, physical exam and plan: Yes Notes (Text): Patient seen and examined by me with resident at 9:55 AM on 10/01/18. Case including HPI, physical exam, and assessment and plan discussed with resident. Agree with above with following additions/corrections. Patient is a 62-year-old male with past medical history significant for hypertension, gout, hepatitis C, and nephrolithiasis that presented to the emergency room with one-day history of dizziness and near syncope after taking 40 mg of lisinopril instead of his prescribed 20 mg of lisinopril secondary to elevated blood pressure. Patient states he is feeling much better today. No dizziness. No lightheadedness. Patient does not feel like he is going to syncopized. No headaches or change in vision. No chest pain or shortness of breath. No nausea, vomiting, or abdominal pain. No fevers or chills. No dysuria. No diarrhea or constipation. Physical exam: General: Awake and alert lying in bed in no acute distress HEENT: Normocephalic, atraumatic. Extraocular muscles intact, pupils equal and reactive, no scleral icterus. Oropharynx is pink moist. Neck is supple. Cardiovascular: Regular rhythm. Normal S1 and S2. No murmurs, rubs, or gallops appreciated Pulmonary: Normal respiratory effort. No rhonchi, rales, or wheezing appreciated Gastrointestinal: Soft, nondistended. Nontender. Positive bowel sounds all 4 quadrants. No guarding. Positive globular abdomen. Musculoskeletal: Moves all extremities. No calf tenderness. No edema appreciated. Central nervous system: AAO x 3, CN2-12 grossly intact Dermatologic: Skin warm and dry. Assessment and plan: Patient is a 62-year-old male with past medical history significant for hypertension, gout, hepatitis C, and nephrolithiasis that prese nted to the emergency room with one-day history of dizziness and near syncope after taking 40 mg of lisinopril instead of his prescribed 20 mg of lisinopril secondary to elevated blood pressure. 1. Dizziness. Near syncope. Neurology following, recommendations appreciated. Cardiology following, recommendations appreciated. Head CT per radiologist showed unremarkable unenhanced head CT. CT for dissection per radiologist showed no thoracic or abdominal aortic aneurysm or dissection appreciable though limited calcific aortic atherosclerosis identified both the chest and abdomen, stable lucency near the dome of the liver. 2-D echo per telesales team leader showed mild concentric left ventricular hypertrophy, left ventricular function is normal, left ventricular ejection fraction is within normal range, normal LV segmental wall motion, transmitral Doppler flow pattern is grade 1 abnormal relaxation pat tern. Pending head and neck CTA. Troponin within normal limits. No leukocytosis. Patient afebrile. Hemoglobin A1c 6.9. 2. New onset diabetes. Hemoglobin A1c 6.9. Patient started on metformin 500 mg daily. Patient started on statin for low HDL and for diabetes. Patient started on baby aspirin. Patient counseled on diet and exercise. 3. Hypertension. Continue lisinopril 20 mg daily. 4. Gout. Not in acute exacerbation. Continue home allopurinol. 5. Patient is a full code. Case was discussed in detail with the patient regarding current diagnosis and treatment plan. All questions answered.
--- NOTE | 2018-10-01 19:05 | PN ---
DATE: 10/01/2018 SUBJECTIVE: The patient denies any dizziness or headache. No reported arrhythmia. PHYSICAL EXAMINATION: VITAL SIGNS: Blood pressure 128/90, heart rate 102, temperature 97.9, and respirations 19. HEENT: Normocephalic. CHEST: Clear. HEART: S1 and S2 regular. EXTREMITIES: No edema. LABORATORY DATA: CT scan with dissection protocol revealed no thoracic or abdominal aortic aneurysm or dissection in the chest or the abdomen. Echocardiographic study revealed normal left ventricular systolic function with reduced diastolic compliance. ASSESSMENT: 1. Postural dizziness. 2. Systemic hypertension. 3. Diabetes mellitus. RECOMMENDATIONS: Case was discussed with the medical records supervisor. Continue current aspirin 81 mg once a day, Zestril 20 mg once a day, Lipitor 80 mg once a day, and Zyloprim at 100 mg once a day. The patient will undergo head and neck CT angio. Simba Justice MD
[2018-10-02 05:44] VITALS: BP 134/80; PULSE 91; RESP 18; TEMP 98.3
[2018-10-02 06:51] LABS: HEMOGLOBIN 15.4 g/dL (14.0-18.0); MEAN CELL VOLUME 90.5 fl (80.0-105.0); MEAN CORPUSCULAR HGB CONC 33.1 g/dl (31.0-37.0); MEAN PLATELET VOLUME 11.2 fl (7.0-11.0); RBC 5.14 10^6/uL (3.5-6.1); RED CELL DISTRIBUTION WIDTH 13.4 % (11.5-14.5); WHITE BLOOD COUNT 10.5 10^3/uL (4.5-11.0)
[2018-10-02 07:05] LABS: ALB/GLOB RATIO 1.2 (1.1-1.8); ALBUMIN 3.9 g/dL (3.0-4.8); ALT/SGPT 61 U/L (7-56); AST/SGOT 51 U/L (17-59); BLOOD UREA NITROGEN 15 mg/dL (7-21); CALCIUM 8.9 mg/dL (8.4-10.5); GFR NON-AFRICAN AMERICAN > 60
[2018-10-02] MEDS: Insulin Lispro (humaLOG) LOW Coverage SC SCH ×2 (08:46→11:38)
--- NOTE | 2018-10-02 09:07 | CT ---
Date of service: 10/01/2018 PROCEDURE: CT Angiography of the neck with contrast HISTORY: dizziness COMPARISON: None. TECHNIQUE: Contiguous axial images of the neck were obtained from the level of the skull-base to the superior mediastinum in the arteriographic phase of enhancement. Coronal and sagittal reformats or also generated. IV contrast dose: 100 cc of Omni 350 Radiation dose: Total exam DLP = 499.62 mGy-cm. This CT exam was performed using one or more of the following dose reduction techniques: Automated exposure control, adjustment of the mA and/or kV according to patient size, and/or use of iterative reconstruction technique. FINDINGS: RIGHT CAROTID ARTERIES: Common Carotid Artery: Normal. Carotid Bifurcation: Normal. Internal Carotid Artery:Normal. External Carotid Artery (proximal branches): Normal. LEFT CAROTID ARTERIES: Common Carotid Artery: Normal. Carotid Bifurcation: Normal. Internal Carotid Artery:Normal. External Carotid Artery (proximal branches): Normal. VERTEBRAL ARTERIES: Right Vertebral Artery: Normal. Left Vertebral Artery: Normal. OTHER FINDINGS: no aortic atherosclerotic calcification or mural plaque present. IMPRESSION: Normal CT Angiography of the neck. CT Angiography of the Brain. HISTORY: dizziness COMPARISON: None available. TECHNIQUE: CT angiography of the intracranial arteries was performed. Coronal and sagittal maximum intensity projection reformated images were generated. Radiation dose: Total exam DLP = 499.62 mGy-cm. This CT exam was performed using one or more of the following dose reduction techniques: Automated exposure control, adjustment of the mA and/or kV according to patient size, and/or use of iterative reconstruction technique. FINDINGS: INTERNAL CEREBRAL ARTERIES: Unremarkable. The skull base, petrous, cavernous and supraclinoid segments are bilaterally widely patent. ANTERIOR CEREBRAL ARTERIES: Unremarkable. A1 and A2 segments are widely patent. Smaller distal branches unremarkable, as visualized. MIDDLE CEREBRAL ARTERIES: Unremarkable. M1 and M2 segments are widely patent. Perisylvian branches grossly symmetric. POSTERIOR CIRCULATION: Basilar Artery: Unremarkable. Distal Vertebral Arteries: Unremarkable. Posterior Cerebral Arteries: Unremarkable. Posterior Inferior Cerebellar Arteries: Unremarkable. ANEURYSM/ VASCULAR MALFORMATIONS: None. OTHER FINDINGS: The report concurs with the preliminary [facility] report IMPRESSION: Unremarkable CT Angiography of the Brain.
--- NOTE | 2018-10-02 12:41 | CP.PCM.DIS ---
Provider - Provider Date of Admission: 09/30/18 05:09 Attending physician: Shagufta Glez DO Primary care physician: Genaro Chauhan MD Consults: 09/30/18 06:41 Consult [Physician Consult] Routine Comment: dizzienss,presyncope,weakness. Consulting Provider: Igor Zamorano Consulting Physician: Igor Zamorano Reason for Consult: dizzienss,presyncope,weakness. 09/30/18 06:46 Consult [Physician Consult] Routine Comment: dizziness,weakness,presyncope, sweating, obesity. Consulting Provider: Simba Justice Consulting Physician: Simba Justice Reason for Consult: dizziness,weakness,presyncope, sweating, obesity. Time Spent in preparation of Discharge (in minutes): 45 Diagnosis - Discharge Diagnosis (1) Postural dizziness with near syncope Status: Resolved (2) Diabetes type 2, uncontrolled Status: Acute (3) Low HDL (under 40) Status: Acute (4) Non compliance w medication regimen Status: Chronic (5) Hypertension Status: Chronic Hospital Course - Lab Results Lab Results: Most Recent Lab Values WBC 10.5 10^3/uL (4.5-11.0) D 10/02/18 06:00 RBC 5.14 10^6/uL (3.5-6.1) 10/02/18 06:00 Hgb 15.4 g/dL (14.0-18.0) 10/02/18 06:00 Hct 46.5 % (42.0-52.0) 10/02/18 06:00 MCV 90.5 fl (80.0-105.0) 10/02/18 06:00 MCH 30.0 pg (25.0-35.0) 10/02/18 06:00 MCHC 33.1 g/dl (31.0-37.0) 10/02/18 06:00 RDW 13.4 % (11.5-14.5) 10/02/18 06:00 Plt Count 166 10^3/uL (120.0-450.0) 10/02/18 06:00 MPV 11.2 fl (7.0-11.0) H 10/02/18 06:00 PT 11.8 SECONDS (9.4-12.5) 09/30/18 03:22 INR 1.03 12/18/18 03:22 APTT 29.6 Seconds (25.1-36.5) 09/30/18 03:22 Sodium 139 mmol/L (132-148) 10/02/18 06:00 Potassium 4.0 mmol/L (3.6-5.0) 10/02/18 06:00 Chloride 105 mmol/L (98-107) 10/02/18 06:00 Carbon Dioxide 27 mmol/L (21-33) 10/02/18 06:00 Anion Gap 11 (10-20) 10/02/18 06:00 BUN 15 mg/dL (7-21) 10/02/18 06:00 Creatinine 1.0 mg/dl (0.8-1.5) 10/02/18 06:00 Est GFR ( Amer) > 60 10/02/18 06:00 Est GFR (Non-Af Amer) > 60 10/02/18 06:00 POC Glucose (mg/dL) 95 mg/dL (65-110) 10/01/18 21:16 Random Glucose 116 mg/dL (70-110) H 10/02/18 06:00 Hemoglobin A1c 6.9 % (4.2-6.5) H 09/30/18 03:22 Calcium 8.9 mg/dL (8.4-10.5) 10/02/18 06:00 Phosphorus 3.4 mg/dL (2.5-4.5) 09/30/18 03:22 Magnesium 1.9 mg/dL (1.7-2.2) 10/01/18 06:00 Total Bilirubin 0.6 mg/dL (0.2-1.3) 10/02/18 06:00 AST 51 U/L (17-59) 10/02/18 06:00 ALT 61 U/L (7-56) H 10/02/18 06:00 Alkaline Phosphatase 97 U/L (38-126) 10/02/18 06:00 Lactate Dehydrogenase 469 U/L (333-699) 09/30/18 03:22 Total Creatine Kinase 176 U/L (35-230) 09/30/18 03:22 Troponin I < 0.01 ng/mL 09/30/18 19:50 Total Protein 7.0 g/dL (5.8-8.3) 10/02/18 06:00 Albumin 3.9 g/dL (3.0-4.8) 10/02/18 06:00 Globulin 3.1 gm/dL 10/02/18 06:00 Albumin/Globulin Ratio 1.2 (1.1-1.8) 10/02/18 06:00 Triglycerides 129 mg/dL (35-160) 09/30/18 03:22 Cholesterol 142 mg/dL (130-200) 09/30/18 03:22 LDL Cholesterol Direct 106 mg/dL (0-129) 09/30/18 03:22 HDL Cholesterol 27 mg/dL (29-60) L 09/30/18 03:22 Influenza Typ A,B (EIA) Negative for flu a/b (NEGATIVE) 09/30/18 05:35 - Hospital Course Hospital Course: HPI at time of admission: "62 y/o male with PMH of HTN, gout, HCV presents with one day h/o dizziness and near syncope after taking 40 mg of lisinopril instead of 20mg daily because of elevated BP in 190s/100. Patient admits to medication non compliance and he takes lisinopril only when his BP is highly increased. He also experienced near syncope but denied LOC or trauma. Patient reports to having chronic diarrhea s/p cholecystectomy that hasn't changed. He has gout and takes allopurinol daily and adds cholchicine to it when having joint pain. He also admits to having left renal stones with infrequent renal colics and occasional blood in urine but he denied dysurea, urgency, frequency. Patient denied chest pain, palpitations, LE edema, abdominal pain/distention, vomiting , headache, blurry vision." Hospital course: Dizziness/near-syncope that pt experienced was likely secondary to supratherapeutic dose of Lisinopril and history of medication non-compliance. Despite pt being told by primary care physician to take BP medication daily, he stated that he only takes home BP medication when elevated. Pt was educated about importance of compliance with medication for prevention of acute bleed, stroke, heart attack, and possible . BP stabilized to wnl while pt was admitted. Pt also had elevated A1c of 6.9. Started on Metformin 500 mg daily. Also started on daily ASA due to elevated ASCVD risk. Pt was also started on Lipitor 10 mg daily for cardiac risk prevention. Cardiology (Dr. Gomez) and Neurology (Dr. Zamorano) were consulted for further medical management. Pertinent imaging: CT head 09/30 negative. CXR 09/[address] dissection study 09/30 neg for aneurysm. CTA head/neck 10/01 negative for acute pathology. Echo 09/30: normal ejection fraction. Pt was discharged to home in stable condition on 10/02/18. Instructed to follow-up with PMD Dr. Chauhan within 3-5 days of hospital discharge. Instructed to follow-up with Parking Supervisor Dr. Justice within 3-5 days of hospital discharge. New prescriptions for Metformin, ASA, and Lipitor sent to pt's pharmacy. Instructed to continue with home medication Lisinopril. Also instructed to resume other home medications as prescribed. Discharge Exam - Head Exam Head Exam: ATRAUMATIC, NORMOCEPHALIC Discharge Plan - Discharge Medications Prescriptions: Aspirin [Aspirin Chewable] 81 mg PO DAILY #14 chew Atorvastatin [Lipitor] 10 mg PO DIN #14 tab metFORMIN [glucOPHAGE] 500 mg PO DAILY #14 tab - Follow Up Plan Condition: STABLE Disposition: HOME/ ROUTINE Instructions: Type 2 Diabetes, Diabetes Diet , Abdominal Pain (ED), Hypertension (DC) Additional Instructions: Please follow up with your primary medical doctor, Dr. Chauhan within 3-5 days after discharge. You have been diagnosed with diabetes. Your HgbA1c was 6.9. <6.0 is considered normal. Weight loss and exercise can help decrease your blood sugar and improve your diabetes. Your Home medications are: - Aspirin (FOR CARDIAC RISK REDUCTION) 81mg PO DAILY - Lipitor (CHOLESTEROL MEDICINE) 10mg PO DAILY - Lisinopril (BLOOD MEDICINE) 20mg PO DAILY - Metformin (DIABETES MEDICINE) 500mg PO DAILY These medications were sent to [facility] pharmacy on [place]/[address] [place] [address] in [place]. Please take your home medications EVERY DAY as ORDERED. DO NOT TAKE MEDICATIONS NEEDED. You can follow up with Dr. Justice, Parking Supervisor as outpatient within 1 week. If your symptoms return, please go to the nearest emergency department. Referrals: Simba Justice MD [Staff Provider] - Genaro Chauhan MD [Primary Care Provider] -
--- NOTE | 2018-10-02 15:40 | PN ---
DATE: 10/02/2018 SUBJECTIVE: The patient denies any dizziness or headache. No chest pain. PHYSICAL EXAMINATION: VITAL SIGNS: Blood pressure 134/80, heart rate 91, temperature 98.3, respirations 18. HEENT: Normocephalic. CHEST: Clear. Heart: S1 , S2 regular. EXTREMITIES: No edema. LABORATORY DATA: Hemoglobin, hematocrit, white count and platelet count are within normal limits. The SMA-7 is within normal limits except for glucose of 116. Hemoglobin A1c was 6.9. Head and neck CT angio, unremarkable study. ASSESSMENT: 1. Postural dizziness. 2. Hypertension. 3. Diabetes mellitus. RECOMMENDATIONS: The patient can be discharged on his current medications including aspirin 81 mg once a day, Zestril at 20 mg once a day, Lipitor 10 mg once a day, Glucophage 500 mg daily. Simba Justice MD
== END 2018-10-02 12:46 | disposition home or self-care (01) ==
LOC: ED 02:05 → ERH 05:09 → 3RNO 12:24
PROVIDERS: ADMIT Hospitalist; ATTEND Hospitalist
DX: R55 Syncope and collapse (principal); R42 Dizziness and giddiness; E11.65 Type 2 diabetes mellitus with hyperglycemia; I10 Essential (primary) hypertension; M10.9 Gout, unspecified; B19.20 Unspecified viral hepatitis C without hepatic coma; Z87.891 Personal history of nicotine dependence; Z91.14 Patient's other noncompliance with medication regimen; Z79.84 Long term (current) use of oral hypoglycemic drugs
CPT/HCPCS: 36415; 70450; 70496; 70498; 71045; 71275; 74175; 80053; 80061; 82550; 82948; 83036; 83615; 83735; 84100; 84484; 85027; 85610; 85730; 87804; 93005; 93306; 99285; G0378; Q9967

== ENCOUNTER 2018-10-21 14:27 | Outpatient (CLI) | payer MEDICARE, MEDICAID | END 2018-10-21 14:28 | disposition home or self-care (01) | LOC: RAD 14:27 ==